=== PATIENT | female | born 2000 | race Caucasian/White ===

== ENCOUNTER 2021-01-04 09:08 | Emergency (ER) | payer BC ==
[~2021-01-04] VITALS: Ht 167.6 cm; Wt 96.6 kg
[2021-01-04] MEDS ORDERED: KEFLEX 500 MG E2 CAP PO (09:34)
[2021-01-04] MEDS ORDERED: SEPTDS PO (09:43)
== END 2021-01-04 09:57 | disposition home or self-care (01) ==
LOC: ED 09:08
DX: S80.862A Insect bite (nonvenomous), left lower leg, initial encounter (principal); L08.9 Local infection of the skin and subcutaneous tissue, unspecified; W57.XXXA Bitten or stung by nonvenomous insect and other nonvenomous arthropods, initial encounter; Y93.89 Activity, other specified; Y92.89 Other specified places as the place of occurrence of the external cause; Y99.8 Other external cause status